=== PATIENT | female | born 1950 | race Caucasian/White ===

== ENCOUNTER 2016-10-15 21:40 | Inpatient (IN) | payer MEDICARE ==
[~2016-10-15] VITALS: Ht 170.2 cm; Wt 65.4 kg
[~2016-10-15 21:40] MED LIST: ATENPOW10 PO
[2016-10-15 21:51] VITALS: BP 150/79; PULSE 87; RESP 18; TEMP 98.7
--- NOTE | 2016-10-15 21:53 | PD ---
HPI Chief Complaint: transfer from [facility] Time Seen by Provider: 21:53 Travel History International Travel<30 days: No Contact w/Intl Traveler<30days: No History of Present Illness HPI 65-year-old female presents to the emergency Department as a transfer from [facility]. The patient states she fell today. According to the records, she fell in her bathroom injuring the left side of her face and her left side. She has a past medical history Alzheimer's disease, hypertension , seizures. CT of the brain showed no acute disease. CT the abdomen and pelvis showed diffuse infiltration around the left kidney with high density material in the left infrarenal collecting system compatible with blood within the collecting system. Patient reports pain to her left side. She denies any other pain at this time. Patient is oriented to person, place, but not time. PFSH Past Medical History Hypertension: Yes Social History Alcohol Use: No Tobacco Use: No Substance Use: No Allergies-Medications (Allergen,Severity, Reaction): Coded Allergies: No Known Allergies (Unverified , 10/15/16) Reported Meds & Prescriptions Reported Meds & Active Scripts Active Reported Atenolol 25 Mg Tab 12.5 Mg PO DAILY Review of Systems Except as stated in HPI: all other systems reviewed are Neg Physical Exam Narrative GENERAL: Well-developed well-nourished female patient, afebrile. SKIN: Warm and dry. Contusion noted to the left eye orbit. HEAD: Normocephalic. EYES: No scleral icterus. No injection or drainage. NECK: Supple, trachea midline. No JVD or lymphadenopathy. CARDIOVASCULAR: Regular rate and rhythm without murmurs, gallops, or rubs. RESPIRATORY: Breath sounds equal bilaterally. No accessory muscle use. GASTROINTESTINAL: Abdomen soft, non-tender, nondistended. MUSCULOSKELETAL: No cyanosis, or edema. Patient has tenderness over her left flank/abdomen. BACK: Nontender without obvious deformity. No CVA tenderness. Data Data Last Documented VS Vital Signs Date Time Temp Pulse Resp B/P Pulse Ox O2 Delivery O2 Flow Rate FiO2 10/15/16 21:55 87 18 10/15/16 21:55 142/83 94 Room Air 10/15/16 21:51 98.7 MDM Medical Decision Making Medical Screen Exam Complete: Yes Emergency Medical Condition: Yes Medical Record Reviewed: Yes Differential Diagnosis renal trauma vs. renal contusion vs. intra-abdominal abnormality vs. fall Narrative Course 65-year-old female is a transfer from [facility] for Dr. Hernández to evaluate. 2156 - Dr. Hernández notified patient was in the ED and will be down to see her. Dr. Hernández saw patient and would like patient admitted to him. Diagnosis Primary Impression: Kidney trauma Qualified Code: S37.002A - Kidney trauma, left, initial encounter Admitting Information Admitting Physician Requests: Admit Jory Morris Oct 15, 2016 21:53
[2016-10-15 21:55] VITALS: BP 142/83; PULSE 88; RESP 18; O2SAT 94
[2016-10-15] MEDS ORDERED: ATEN25TA PO (21:58)
[2016-10-15] MEDS ORDERED: MAGNESIUM HYDROXIDE SUSP 30 ML CUP PO PRN (22:30)
[2016-10-15] MEDS ORDERED: ACETAMINOPHEN/HYDROcodone 325 MG/5 MG TAB PO PRN ×2 (22:30)
[2016-10-15] MEDS ORDERED: ENALAPRILAT 1.25 MG/ML VIAL IV PRN (22:30)
[2016-10-15] MEDS ORDERED: ACETAMINOPHEN 325 MG TAB PO PRN (22:30)
[2016-10-15] MEDS ORDERED: SODIUM CHLORIDE 0.9% FLUSH 5 ML FLUSH IVF PRN (22:30)
[2016-10-15] MEDS ORDERED: ONDANSETRON HCL 4 MG/2 ML VIAL IV PRN (22:30)
[2016-10-15] MEDS: BACITRACIN TOP OINT 15 GM TUBE TOP SCH (22:30)
[2016-10-15] MEDS ORDERED: MORPHINE SULFATE 4 MG/ML INJ IV PRN (22:30)
[2016-10-15 23:07] VITALS: BP 139/72; PULSE 85; RESP 18; TEMP 98.6; O2SAT 100
[2016-10-15] MEDS: SODIUM CHLOR 0.9% 1000 ML INJ 1,000 ML IV SCH (23:22)
[2016-10-15] MEDS: PANTOPRAZOLE SODIUM 40 MG VIAL IVP SCH (23:23)
[2016-10-15] MEDS: CIPROFLOXACIN 400 MG PREMIX 200 ML IV SCH (23:23)
[2016-10-16] VITALS (7 sets, daily range): BP systolic 108–135; BP diastolic 61–72; PULSE 81–105; RESP 18–20; TEMP 98.1–99.6; O2SAT 93–98
[2016-10-16 05:53] LABS: AUTOMATED NEUTROPHIL # 13.9 TH/MM3 (1.8-7.7); BASOPHIL % 0.2 % (0.0-2.0); HEMATOCRIT 38.8 % (35.0-46.0); HEMO FLAGS DIFF FINAL; LYMPH % 3.6 % (9.0-44.0); LYMPHOCYTE # 0.6 TH/MM3 (1.0-4.8); MEAN CELL VOLUME 88.5 FL (80.0-100.0); MEAN CORPUSCULAR HEMOGLOBIN 30.2 PG (27.0-34.0); MEAN CORPUSCULAR HGB CONC 34.1 % (32.0-36.0); MONO % 5.6 % (0.0-8.0); NEUT % 90.6 % (16.0-70.0); PLATELET COUNT 197 TH/MM3 (150-450); RED BLOOD COUNT 4.39 MIL/MM3 (4.00-5.30); RED CELL DISTRIBUTION WIDTH 12.9 % (11.6-17.2); WHITE BLOOD COUNT 15.4 TH/MM3 (4.0-11.0)
[2016-10-16 06:11] LABS: BICARBONATE 23.4 MEQ/L (21.0-32.0)
--- NOTE | 2016-10-16 08:18 | MH ---
cc: LISANDRO MAIER DATE OF ADMISSION: 10/15/2016 REASON FOR CONSULTATION Trauma transfer. HISTORY OF PRESENT ILLNESS The patient is a 65-year-old female with a history of dementia who was transferred to [facility] after a fall, to the trauma service. The patient per outside report fell in her bathtub onto her left side. The patient had significant pain left side and some and had some hematuria at home. The patient was transported to [facility] where she underwent a CT scan which showed contusions to the left kidney as well as hematuria and possible extravasation of contrast on delayed films of the left collecting system. The patient had a CT scan of her head which was negative for intracranial injury and had no other injuries, was found to be hemodynamically stable, neurologically intact, intact airway. Urology was contacted by Transfer Center and agreed to be consulted on the patient, requested trauma to admit. The patient arrived to [facility] and was seen by the emergency room staff and found to be hemodynamically stable, neurologically intact and intact airway and breathing. The patient is a poor historian due to her dementia but states she has some left-sided flank pain, there was no other complaints. Review of the documentation shows the documented CT findings as above with unremarkable laboratory values including normal INR and hemoglobin. The patient does not have a Barraza catheter. REVIEW OF SYSTEMS Negative except for the pertinent positives mentioned above in the history of present illness. PAST MEDICAL HISTORY Hypertension and dementia. SOCIAL HISTORY Denies alcohol, tobacco or drug use and lives with family at home. ALLERGIES NO KNOWN DRUG ALLERGIES. MEDICATIONS Atenolol. FAMILY HISTORY The family history is noncontributory. PAST SURGICAL HISTORY None. PHYSICAL EXAMINATION VITAL SIGNS: Pulse 87, blood pressure 142/83, O2 saturation 94%. GENERAL: The patient is a well-developed, well-nourished elderly female, in no acute distress. HEENT: Head is normocephalic, atraumatic. Does have a small abrasion and contusion over her left eyebrow. Midface is stable. Pupils are equal, round and reactive, accommodation to light. Sclerae is anicteric. Mucous membranes are moist. No malocclusion. Mandible is stable. NECK: No cervical spine tenderness or deformity. No JVD. Trachea is midline. CHEST: Chest wall is stable without deformity. Nontender to palpation. LUNGS: Clear to auscultation bilaterally. HEART: Regular rate and rhythm. No murmurs. ABDOMEN: Soft, nondistended. No organomegaly. No ascites and no seatbelt sign. No peritonitis or rebound tenderness. Left flank reveals tenderness to palpation with no external ecchymosis. BACK: No thoracic or lumbar tenderness or deformity. EXTREMITIES: No clubbing, cyanosis or edema. NEUROLOGIC EXAMINATION: Patient is oriented x2, moves all extremities, equal strength, nonfocal. Cranial nerves II-XII grossly intact. ASSESSMENT/PLAN The patient is a 65-year-old female transferred from [facility] with possible injury to the left collecting system. The patient is hemodynamically stable, neurologically intact, intact airway. The patient has a benign abdominal exam. There was no other signs of injuries. Will admit the patient for further evaluation and consult urology for their recommendations and management. Will place a Barraza catheter and monitor urine output. Place the patient on IV fluids, keep the patient n.p.o. for possible intervention. Will also start empiric antibiotics, cover gram-negative bacteria. Will also consult medicine team for management of the patient's multiple medical comorbidities. The patient will also need evaluation for her fall. MD TRUDY Gary/TLL /10:29 PM /8:00 AM
[2016-10-16] MEDS ORDERED: INFLUENZA VIRUS VACCINE (QUADRIVALENT) 0.5 ML SYR IM ONE (10:00)
[2016-10-16] MEDS ORDERED: PNEUMOCOCCAL POLYVALENT INJ 25 MCG/0.5 ML SYR IM ONE (10:00)
[2016-10-16] MEDS ORDERED: IOHEXOL 350 MG/ML 50 ML BTL (for RAD DIAG) IV ONE (10:35)
[2016-10-16] MEDS: CIPROFLOXACIN 400 MG PREMIX 200 ML IV SCH ×2 (11:23→23:52)
[2016-10-16] MEDS: SODIUM CHLOR 0.9% 1000 ML INJ 1,000 ML IV SCH ×2 (11:23→20:37)
--- NOTE | 2016-10-16 11:34 | RADRPT ---
EXAM DATE/TIME: 10/16/2016 10:28 [place] COMPARISON: No previous studies available for comparison. EXTERNAL COMPARISON : [facility] INDICATIONS : Fall yesterday, contusions to left kidney and hematuria. IV CONTRAST: 95 cc Omnipaque 350 (iohexol) IV ORAL CONTRAST: No oral contrast ingested. RADIATION DOSE: 13.28 CTDIvol (mGy) MEDICAL HISTORY : Myocardial infarction. Hypertension. SURGICAL HISTORY : None. ENCOUNTER: Initial ACUITY: 1 day PAIN SCALE: 5/10 LOCATION: Left flank TECHNIQUE: Volumetric scanning of the abdomen and pelvis was performed. Using automated exposure control and ad justment of the mA and/or kV according to patient size, radiation dose was kept as low as reasonably achievable to obtain optimal diagnostic quality images. FINDINGS: There are dependent atelectatic changes bilaterally. A small hiatal hernia is present. There is high density within the gallbladder characteristic of vicarious excretion of contrast. There is contrast w ithin the intrarenal collecting systems. The spleen, pancreas, bilateral adrenal glands and right kid shereen are unremarkable. There is perinephric stranding with a small amount of perinephric free fluid tr acking inferiorly. Barraza catheter within urinary bladder. Uterus and adnexa are unremarkable. No evid ence of bowel obstruction. Appendix, small bowel and large bowel are normal. Aortic and iliac artery calcifications are noted. Review of bone windows demonstrate no worrisome osseous lesions. Right tota l hip arthroplasty. Best seen on the 10 minute delayed images is abnormal extravasation of contrast i n the perinephric space anterior and medial to the left kidney the anterior, superior and posterior t o the proximal ureter. This is most concerning for a proximal ureteral injury. CONCLUSION: There is abnormal contrast extravasation on the delayed images with perinephric fluid. The density of the contrast is the same as that within the ureter, and a proximal ureteral injury is suspected give n these findings. There is also focal retention of contrast at the lower pole of the left kidney. Stephen Maza MD on October 16, 2016 at 11:25 Board Certified Radiologist. This report was verified electronically.
[2016-10-16] MEDS: BACITRACIN TOP OINT 15 GM TUBE TOP SCH ×2 (11:43→20:37)
--- NOTE | 2016-10-16 12:08 | PD.CONS ---
[facility] By Trauma surgery Reason for Consult Medical management of hypertension and seizures Primary Care Physician Unknown Diagnoses: History of Present Illness This patient is a 65-year-old female with a history of seizures who has over the last 6 months had progressive seizure activity and has been in follow-up with her neurologist in [facility]. She was transferred here due to a fall( after sz) and flank pain which thought to be related to injury to the left kidney. She does have some extravasation seen on dye studies of the kidney and has been recommended for urological intervention due to this. Renal function is normal. Patient has Alzheimer's and does have power of crowd controller at bedside who assisted in her history Review of Systems Constitutional: DENIES: Diaphoretic episodes, Fatigue, Fever, Weight gain, Weight loss, Chills, Dizziness, Change in appetite, Night Sweats Endocrine: DENIES: Abnorml menstrual pattern, Heat/cold intolerance, Polydipsia , Polyuria, Polyphagia Eyes: DENIES: Blurred vision, Diplopia, Eye inflammation, Eye pain, Vision loss , Photosensitivity, Double Vision Ears, nose, mouth, throat: DENIES: Tinnitus, Hearing loss, Vertigo, Nasal discharge, Oral lesions, Throat pain, Hoarseness, Ear Pain, Running Nose, Epistaxis, Sinus Pain, Toothache, Odynophagia Respiratory: DENIES: Apneas, Cough, Snoring, Wheezing, Hemoptysis, Sputum production, Shortness of breath Cardiovascular: DENIES: Chest pain, Palpitations, Syncope, Dyspnea on Exertion , PND, Lower Extremity Edema, Orthopnea, Claudication Gastrointestinal: DENIES: Abdominal pain, Black stools, Bloody stools, Constipation, Diarrhea, Nausea, Vomiting, Difficulty Swallowing, Anorexia Genitourinary: DENIES: Abnormal vaginal bleeding, Dysmenorrhea, Dyspareunia, Sexual dysfunction, Urinary frequency, Urinary incontinence, Urgency, Hematuria , Dysuria, Nocturia, Vaginal discharge Musculoskeletal: DENIES: Joint pain, Muscle aches, Stiffness, Joint Swelling, Back pain, Neck pain Integumentary: DENIES: Abnormal pigmentation, Pruritus, Rash, Nail changes, Breast masses, Breast skin changes, Nipple discharge Hematologic/lymphatic: DENIES: Bruising, Lymphadenopathy Immunologic/allergic: DENIES: Eczema, Urticaria Neurologic: COMPLAINS OF: Seizures, DENIES: Abnormal gait, Headache, Localized weakness, Paresthesias, Speech Problems, Tremor, Poor Balance Psychiatric: COMPLAINS OF: Confusion, DENIES: Anxiety, Mood changes, Depression, Hallucinations, Agitation, Suicidal Ideation, Homicidal Ideation, Delusions Past Family Social History Allergies: Coded Allergies: No Known Allergies (Unverified , 10/15/16) Past Medical History Seizures Alzheimer's gerd hypertension Past Surgical History Denies Reported Medications Reviewed in the medical record, also takes keppra, lamotrigine, donepezil, buspirone, and opmeprazole Active Ordered Medications Reviewed in the record Family History Hypertension Physical Exam Vital Signs Vital Signs Date Time Temp Pulse Resp B/P Pulse Ox O2 Delivery O2 Flow Rate FiO2 10/16/16 08:00 98.8 96 20 108/68 93 10/16/16 04:00 99.6 81 18 130/67 95 10/16/16 00:00 98.9 88 18 134/72 97 10/15/16 23:07 98.6 85 18 139/72 100 Room Air 10/15/16 21:55 87 18 10/15/16 21:55 88 18 142/83 94 Room Air 10/15/16 21:51 98.7 87 18 150/79 Physical Exam GENERAL: This is a well-nourished, well-developed patient, in no apparent distress. SKIN: No rashes, ecchymoses or lesions. Cool and dry. HEAD: Atraumatic. Normocephalic. No temporal or scalp tenderness. EYES: left eye ecchymosis, Pupils equal round and reactive. Extraocular motions intact. No scleral icterus. No injection or drainage. ENT: Nose without bleeding, purulent drainage or septal hematoma. Throat without erythema, tonsillar hypertrophy or exudate. Uvula midline. Airway patent. NECK: Trachea midline. No JVD or lymphadenopathy. Supple, nontender, no meningeal signs. CARDIOVASCULAR: Regular rate and rhythm without murmurs, gallops, or rubs. RESPIRATORY: Clear to auscultation. Breath sounds equal bilaterally. No wheezes , rales, or rhonchi. GASTROINTESTINAL: Abdomen soft, non-tender, nondistended. No hepato-splenomegaly , or palpable masses. No guarding. MUSCULOSKELETAL: Extremities without clubbing, cyanosis, or edema. No joint tenderness, effusion, or edema noted. No calf tenderness. Negative Homans sign bilaterally. NEUROLOGICAL: Awake and alert. Cranial nerves II through XII intact. Motor and sensory grossly within normal limits. Five out of 5 muscle strength in all muscle groups. Normal speech. Laboratory Laboratory Tests Test 10/16/16 05:06 White Blood Count 15.4 Red Blood Count 4.39 Hemoglobin 13.3 Hematocrit 38.8 Mean Corpuscular Volume 88.5 Mean Corpuscular Hemoglobin 30.2 Mean Corpuscular Hemoglobin 34.1 Concent Red Cell Distribution Width 12.9 Platelet Count 197 Mean Platelet Volume 9.4 Neutrophils (%) (Auto) 90.6 Lymphocytes (%) (Auto) 3.6 Monocytes (%) (Auto) 5.6 Eosinophils (%) (Auto) 0.0 Basophils (%) (Auto) 0.2 Neutrophils # (Auto) 13.9 Lymphocytes # (Auto) 0.6 Monocytes # (Auto) 0.9 Eosinophils # (Auto) 0.0 Basophils # (Auto) 0.0 CBC Comment DIFF FINAL Differential Comment Sodium Level 137 Potassium Level 4.0 Chloride Level 104 Carbon Dioxide Level 23.4 Anion Gap 10 Blood Urea Nitrogen 12 Creatinine 0.72 Estimat Glomerular Filtration 81 Rate Random Glucose 132 Calcium Level 8.8 Result Diagram: 10/16/16 0506 10/16/[address] abd pelvis shows extravasation of contrast in left kidney system Assessment and Plan Problem List: (1) Kidney trauma ICD Code: S37.009A Status: Acute Plan: for urological follow up today deshpande empiric Cipro (2) Seizure ICD Code: R56.9 Status: Acute Plan: Escalation of seizure activity in the last 6 months per patient and healthcare surrogate. We'll consult neurology EEG pending Sees dr Negro DEVINE resume AEDs (3) HTN (hypertension) ICD Code: I10 Status: Acute Plan: on atenolol at home BP low will hold bb, cont iVF (4) Dementia ICD Code: F03.90 Status: Acute Plan: alzheimers type POA at bedside resume donepezil Code Status full Discussed Condition With patient, RN, POA Problem Qualifiers (1) Kidney trauma: Qualified Code: S37.002A - Kidney trauma, left, initial encounter Lauren Gutierrez MD Oct 16, 2016 12:08
[2016-10-16] MEDS: busPIRone HCL 10 MG TAB PO SCH ×2 (12:30→20:36)
[2016-10-16] MEDS ORDERED: levETIRAcetam 500 MG TAB PO SCH (12:30)
[2016-10-16] MEDS: lamoTRIgine 25 MG TAB PO SCH (13:00)
--- NOTE | 2016-10-16 13:10 | HHI.PR ---
Subjective Subjective Notes PTD: 1 Patient sitting up in bed in no distress. She states her stomach "aches." Objective Vitals/I&O Vital Signs Date Time Temp Pulse Resp B/P Pulse Ox O2 Delivery O2 Flow Rate FiO2 10/16/16 12:00 99.3 95 20 122/69 96 10/15/16 23:07 Room Air Labs Laboratory Tests Test 10/16/16 05:06 White Blood Count 15.4 Red Blood Count 4.39 Hemoglobin 13.3 Hematocrit 38.8 Mean Corpuscular Volume 88.5 Mean Corpuscular Hemoglobin 30.2 Mean Corpuscular Hemoglobin 34.1 Concent Red Cell Distribution Width 12.9 Platelet Count 197 Mean Platelet Volume 9.4 Neutrophils (%) (Auto) 90.6 Lymphocytes (%) (Auto) 3.6 Monocytes (%) (Auto) 5.6 Eosinophils (%) (Auto) 0.0 Basophils (%) (Auto) 0.2 Neutrophils # (Auto) 13.9 Lymphocytes # (Auto) 0.6 Monocytes # (Auto) 0.9 Eosinophils # (Auto) 0.0 Basophils # (Auto) 0.0 CBC Comment DIFF FINAL Differential Comment Sodium Level 137 Potassium Level 4.0 Chloride Level 104 Carbon Dioxide Level 23.4 Anion Gap 10 Blood Urea Nitrogen 12 Creatinine 0.72 Estimat Glomerular Filtration 81 Rate Random Glucose 132 Calcium Level 8.8 Radiology Images from [facility]: 10/16/2015 CTA abdomen and pelvis: abnormal contrast extravasation with perinephric fluid. Proximal ureteral injury is suspected. (retention of contrast at the lower pole of the LEFT kidney.) Narrative Exam GENERAL: This is a 65-year-old female sitting up in bed in no distress. SKIN: Warm and dry. HEAD: Atraumatic. Normocephalic. EYES: PERRLA. LEFT eye with slight ecchymosis noted. ENT: No nasal bleeding or discharge. Mucous membranes pink and moist. NECK: Trachea midline. No JVD. CARDIOVASCULAR: Regular rate and rhythm. RESPIRATORY: No accessory muscle use. Lungs are clear to auscultation. Breath sounds equal bilaterally. No distress or dyspnea. GASTROINTESTINAL: BS + x 4 quads. Abdomen soft, tender to palpation in the LEFT lumbar region of abdomen. Nondistended. MUSCULOSKELETAL: Extremities without cyanosis, or edema. + peripheral pulses x 4 extremities. Warm with good capillary refill and sensation. MAEW. NEUROLOGICAL: Awake and alert. Normal speech and pattern. A/P Assessment and Plan [place]: This is a 65-year-old female who was a trauma transfer from [facility] in [place]. She fell in the bathroom onto her LEFT side. INJURIES: CT head negative LEFT kidney INJURY - proximal ureteral injury Diet: NPO at present. Pulmonary: Encourage good pulmonary toileting. IS at bedside and pt encouraged to use. Rationale for use explained to patient, and verbalized understanding. PAIN Management: [place], and Tylenol. Activity: BR, PT ordered. GI prophylaxis: Protonix IV. Barraza catheter in place to bedside drainage bag with clear yellow urine. (No blood noted) Bowel regimen: Colace and MOM. DVT prophylaxis: Mechanical VTE with SCDs. Chemical management contraindicated at this time. Will continue to monitor. DC Planning: Case management consulted for assistance with final discharge disposition. Emotional support provided to patient at bedside and plan of care discussed. Plan of care discussed with RN at bedside. Patient is hemodynamically stable and being managed on the med/surg floor. Attending Statement Patient seen and examined with the physician underground truck operator. After performing my own clinical exam and assessment, I agree with the assessment and plan. Sarah Beth Vasquze Oct 16, 2016 13:10 Maicol May MD Oct 20, 2016 14:58
[2016-10-16] MEDS ORDERED: PHENYLEPH/NS 1000 MCG/10 ML SYR IV ONE (14:22)
[2016-10-16] MEDS ORDERED: ONDANSETRON HCL 4 MG/2 ML VIAL IV PUSH ONE (14:22)
[2016-10-16] MEDS ORDERED: PROPOFOL 200 MG/20 ML AMP IV ONE (14:22)
[2016-10-16] MEDS ORDERED: NORMOSOL R INJ 1,000 ML IV ONE (14:22)
[2016-10-16] MEDS ORDERED: MIDAZOLAM HCL 2 MG/2 ML VIAL ONE (15:20)
--- NOTE | 2016-10-16 15:46 | PD.CONS ---
HPI Service Urology Consult Requested By Reason for Consult Ureteral injury Primary Care Physician Unknown Diagnosis: (1) Kidney trauma ICD Code: S37.009A (2) Seizure ICD Code: R56.9 (3) HTN (hypertension) ICD Code: I10 (4) Dementia ICD Code: F03.90 History of Present Illness 65 yo female with history of seizures seen in consultation s/p ground level fall on her left side with evidence of left proximal ureteral injury noted on CT scan with some contrast extravasation noted at the level of the left UPJ. Contrast was seen extending the entire length of the ureter do the distal ureter and bladder, suggesting a minor tear/injury to the proximal left ureter. Patient at this time is doing well, no fevers, no flank pain. She has a bruise underneath her left eye. Decision making performed by her power of employment attorney. No hematuria, however evidence of blood products in the left collecting system. Review of Systems ROS Limitations: Clinical Condition Constitutional: DENIES: Fatigue, Fever Endocrine: DENIES: Polyuria Eyes: DENIES: Blurred vision Ears, nose, mouth, throat: DENIES: Hearing loss Respiratory: DENIES: Apneas Cardiovascular: DENIES: Chest pain Gastrointestinal: DENIES: Abdominal pain, Nausea, Vomiting Genitourinary: DENIES: Urgency, Hematuria, Dysuria Musculoskeletal: DENIES: Joint pain Integumentary: DENIES: Abnormal pigmentation Hematologic/lymphatic: COMPLAINS OF: Bruising Immunologic/allergic: DENIES: Eczema Neurologic: DENIES: Headache Psychiatric: DENIES: Anxiety Past Family Social History Past Medical History Seizures Alzheimer's gerd hypertension Past Surgical History Denies any surgical history Reported Medications Reported Meds & Active Scripts Active Reported Atenolol 25 Mg Tab 12.5 Mg PO DAILY Allergies: Coded Allergies: No Known Allergies (Unverified , 10/15/16) Active Ordered Medications Current Medications Medications (Trade) Dose Ordered Sig/Tete Route Start Time Stop Time Status Last Admin (NS 1000 ml Inj) 1,000 ml @ 100 mls/hr Q10H IV 10/15/16 22:21 10/16/16 11:23 (NS Flush) 2 ml UNSCH PRN IVF 10/15/16 22:30 (Morphine Inj) 2 mg Q1H PRN IV 10/15/16 22:30 ([place] 5-325 Mg) 1 tab Q4H PRN PO 10/15/16 22:30 ([place] 5-325 Mg) 2 tab Q4H PRN PO 10/15/16 22:30 (Tylenol) 650 mg Q6H PRN PO 10/15/16 22:30 (Vasotec Inj) 1.25 mg Q8H PRN IV 10/15/16 22:30 (Zofran Inj) 4 mg Q6H PRN IV 10/15/16 22:30 (Protonix Inj) 40 mg Q24H IVP 10/15/16 23:00 10/15/16 23:23 (Baciguent Oint) 1 applic BID TOP 10/15/16 22:30 10/16/16 11:43 Magnesium Hydroxide 30 ml 30 ml Q6H PRN PO 10/15/16 22:30 (Cipro 400 Mg Premix) 200 ml @ 200 mls/hr Q12H IV 10/15/16 23:00 10/16/16 11:23 (Keppra) 500 mg Q12HR PO 10/16/16 12:30 (LaMICtal) 25 mg DAILY PO 10/16/16 13:00 (Buspar) 10 mg Q12HR PO 10/16/16 12:30 (Aricept) 5 mg DAILY PO 10/17/16 09:00 Family History Hypertension Social History Denies tobacco and ETOH Physical Exam Vital Signs Vital Signs Date Time Temp Pulse Resp B/P Pulse Ox O2 Delivery O2 Flow Rate FiO2 10/16/16 12:00 99.3 95 20 122/69 96 10/16/16 08:00 98.8 96 20 108/68 93 10/16/16 04:00 99.6 81 18 130/67 95 10/16/16 00:00 98.9 88 18 134/72 97 10/15/16 23:07 98.6 85 18 139/72 100 Room Air 10/15/16 21:55 87 18 10/15/16 21:55 88 18 142/83 94 Room Air 10/15/16 21:51 98.7 87 18 150/79 Physical Exam GENERAL: This is a well-nourished, well-developed patient, in no apparent distress. SKIN: No rashes, ecchymoses or lesions. Bruise under left eye HEAD: Atraumatic. Normocephalic.. EYES: Extraocular motions intact. No scleral icterus. No injection or drainage. ENT: Nose without bleeding, purulent drainage. Airway patent. NECK: Trachea midline. No JVD or lymphadenopathy. CARDIOVASCULAR: Extremities well perfused, normal pulses RESPIRATORY: Nonlabored, equal chest rise GASTROINTESTINAL: Abdomen soft, non-tender, nondistended. MUSCULOSKELETAL: Extremities without clubbing, cyanosis, or edema. NEUROLOGICAL: Awake and alert.. Motor and sensory grossly within normal limits. Normal speech. Laboratory Laboratory Tests Test 10/16/16 05:06 White Blood Count 15.4 Red Blood Count 4.39 Hemoglobin 13.3 Hematocrit 38.8 Mean Corpuscular Volume 88.5 Mean Corpuscular Hemoglobin 30.2 Mean Corpuscular Hemoglobin 34.1 Concent Red Cell Distribution Width 12.9 Platelet Count 197 Mean Platelet Volume 9.4 Neutrophils (%) (Auto) 90.6 Lymphocytes (%) (Auto) 3.6 Monocytes (%) (Auto) 5.6 Eosinophils (%) (Auto) 0.0 Basophils (%) (Auto) 0.2 Neutrophils # (Auto) 13.9 Lymphocytes # (Auto) 0.6 Monocytes # (Auto) 0.9 Eosinophils # (Auto) 0.0 Basophils # (Auto) 0.0 CBC Comment DIFF FINAL Differential Comment Sodium Level 137 Potassium Level 4.0 Chloride Level 104 Carbon Dioxide Level 23.4 Anion Gap 10 Blood Urea Nitrogen 12 Creatinine 0.72 Estimat Glomerular Filtration 81 Rate Random Glucose 132 Calcium Level 8.8 Result Diagram: 10/16/16 0506 10/16/[address] Urogram 10/16/16: Evidence of contrast extravasation at the level of the left UPJ Assessment and Plan Problem List: (1) Kidney trauma ICD Code: S37.009A Status: Acute (2) Seizure ICD Code: R56.9 Status: Acute (3) Dementia ICD Code: F03.90 Status: Acute (4) HTN (hypertension) ICD Code: I10 Status: Acute Assessment and Plan 65yo female with left proximal ureteral injury -As there is contrast noted outside the left collecting system, a left ureteral stent is indicated to allow proper healing, prevent future stricture formation, and resolve the extravasation of urine. -Left ureteral stent will need to be removed in the future after investigation of the left collecting system again by either CT urogram or retrograde pyelogram -At this time, will take patient to OR for cystoscopy , left ureteral stent placement -Consent obtained and signed by power of employment attorney Problem Qualifiers (1) Kidney trauma: Qualified Code: S37.002A - Kidney trauma, left, initial encounter Aniket Esposito MD Oct 16, 2016 15:46
[2016-10-16] MEDS ORDERED: IOHEXOL 300 MG/ML 50 ML BTL (for RAD DIAG) OTHER ONE (16:00)
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
[2016-10-16] MEDS ORDERED: DO NOT ADM ANY ANTICOAGULANT DRUGS XX PRN (17:00)
--- NOTE | 2016-10-16 18:05 | RADRPT ---
EXAM DATE/TIME: 10/16/2016 15:14 [facility] COMPARISON: CT ABDOMEN & PELVIS W CONTRAST, October 16, 2016, 10:28. INDICATIONS : Stent placement. OR. 1.1 minutes IMAGE COUNT: 2 CONTRAST: Instilled by Ordering Physician MEDICAL HISTORY : Myocardial infarction. Hypertension. SURGICAL HISTORY : None. ENCOUNTER: Initial ACUITY: 1 day PAIN SCORE: Non-responsive. LOCATION: Left lower quadrant abdomen FINDINGS: Contrast leaks in the left renal hilum region. A left ureteral stent is placed, proximal pigtail not completely coiled and with tip appearing to be in a left upper pole calyx. CONCLUSION: Left collecting system rupture again noted, probably of the renal pelvis or UPJ regio n. Left ureteral stent placed and the proximal tip projects over the left upper pole. Pedro Rdz MD on October 16, 2016 at 18:01 Board Certified Radiologist. This report was verified electronically.
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
--- NOTE | 2016-10-16 19:28 | MG ---
cc: MICHAEL GOODE Lab No: Date: Age: Sex: F Race: ELECTROENCEPHALOGRAM NUMBER [id number] INTRODUCTION A 65-year-old. Hyperventilation not performed. History of seizures, a fall. Keppra. Lamictal. BuSpar. DESCRIPTION A symmetrical 10 Hz 60 microvolts posterior rhythm is seen. The recording overall is synchronous and symmetrical. Some bifrontal artifact is noted and bitemporal artifact with muscle artifact. Photic stimulation was performed without significant posterior driving. No epileptiform or seizure activity is seen. Hyperventilation is not performed. IMPRESSION A normal awake EEG. No evidence for a focal or diffuse abnormality. MD HILARIO Rondon/KAYLA /6:46 PM /7:24 PM
[2016-10-16] MEDS: OXYBUTYNIN CHLORIDE 5 MG TAB PO SCH (20:36)
[2016-10-16] MEDS: levETIRAcetam 500 MG TAB PO SCH (20:36)
--- NOTE | 2016-10-16 21:14 | MP ---
cc: RUFINO SILVER MD DATE OF SURGERY 10/16/2016 PREOPERATIVE DIAGNOSIS Left proximal ureteral injury. POSTOPERATIVE DIAGNOSIS Left proximal ureteral injury. SURGEON Rufino Silver MD PROCEDURE PERFORMED 1. Cystoscopy. 2. Left retrograde pyelogram. 3. Interpretation of radiographic images. 4. Left ureteral stent placement 6 x 22. PERTINENT FINDINGS Successful placement of left 6 x 22 double J ureteral stent. INTERPRETATION OF RADIOGRAPHIC FINDINGS 1. Left retrograde pyelogram revealed minimal contrast extravasation noted at the proximal left ureter at the level of the UPJ. 2. Successful placement of a left ureteral stent with curl in the left upper pole renal stormy. No other abnormalities noted. HISTORY OF THE PRESENT ILLNESS Graciela Villagran is a 65-year-old female with a history of seizures with a recent ground level fall to the left side resulting in a proximal ureter injury noted on a CT urogram. With contrast extravasation noted at the left proximal ureter / UPJ. She was taken to the operating room for a left retrograde pyelogram and left ureteral stent placement given the radiographic findings. PROCEDURE IN DETAILS After proper informed consent was obtained the patient brought to the operating room and charla supine on the operating table. Bilateral lower extremity sequential compression devices were then placed. The patient was placed under general anesthesia. The patient was then placed in the lithotomy position, prepped and draped in the standard surgical fashion. After a proper timeout was completed, a rigid cystoscope was inserted through the urethra into the bladder. The urethral mucosal was within normal limits without any abnormalities or lesions identified in the bladder. Upon entering the bladder the bilateral ureteral orifices were identified. The left ureteral orifice was then cannulated using the guidewire and guided up to the left renal pelvis. An open ended 5 Salvadorean poly catheter was placed over the wire into the proximal ureter. At this point the wire was removed and the retrograde pyelogram was administered which does not reveal any significant evidence of a contrast extravasation with some mild contrast noted around the proximal ureter and kidney. Again the calyces were noted to be sharp without any blunting and easily identified. At this point the guidewire was then replaced and was passed in to the left upper pole calyx. At this point the open ended poly catheter was removed and a 6 x 22 double J ureteral stent was then successfully placed at the left renal upper pole calyx and confirmed position via fluoroscopy. At this point the was cope removed as the patient's bladder was emptied. A 16 Salvadorean urethral catheter was replaced in the bladder. The patient tolerated the procedure well and no complications. She was awoken from anesthesia and taken to the postanesthesia care unit in good stable condition. DISPOSITION The patient is to monitor the ureteral stent in place with follow up in the urology clinic in a few weeks. She will likely need a another study regarding her collecting system in a few weeks to months with either a repeat CT urogram or a cystoscopy and left retrograde pyelogram. The ____ catheter may be removed prior to discharge. Rufino Silver M.D. ZACH/KAYLA /4:12 PM /8:33 PM
[2016-10-16] MEDS: PANTOPRAZOLE SODIUM 40 MG VIAL IVP SCH (23:52)
[2016-10-17] VITALS (7 sets, daily range): BP systolic 105–133; BP diastolic 58–75; PULSE 74–103; RESP 18–20; TEMP 97.4–99.1; O2SAT 95–99
[2016-10-17] MEDS: SODIUM CHLOR 0.9% 1000 ML INJ 1,000 ML IV SCH ×2 (03:41→14:48)
[2016-10-17] MEDS: OXYBUTYNIN CHLORIDE 5 MG TAB PO SCH ×2 (06:08→14:45)
[2016-10-17 06:50] LABS: HEMATOCRIT 34.4 % (35.0-46.0); MEAN CELL VOLUME 89.2 FL (80.0-100.0); MEAN CORPUSCULAR HGB CONC 33.7 % (32.0-36.0); PLATELET COUNT 162 TH/MM3 (150-450); RED BLOOD COUNT 3.86 MIL/MM3 (4.00-5.30); RED CELL DISTRIBUTION WIDTH 13.1 % (11.6-17.2); REVIEW FLAG FINAL; WHITE BLOOD COUNT 8.1 TH/MM3 (4.0-11.0)
--- NOTE | 2016-10-17 07:57 | HHI.PR ---
Objective Vital Signs Date Time Temp Pulse Resp B/P Pulse Ox O2 Delivery O2 Flow Rate FiO2 10/17/16 04:00 99.1 103 18 105/58 95 10/17/16 00:00 98.8 98 18 108/63 96 10/16/16 20:45 98.1 105 18 135/61 95 10/16/16 20:00 105 10/16/16 17:00 98.4 95 20 116/64 98 10/16/16 16:55 98.2 92 16 142/71 96 Room Air 10/16/16 16:45 96 16 149/86 95 Room Air 10/16/16 16:30 97 16 152/89 99 Nasal Cannula 2 10/16/16 16:18 98.3 96 16 151/85 98 Nasal Cannula 2 10/16/16 12:00 99.3 95 20 122/69 96 10/16/16 08:00 98.8 96 20 108/68 93 I/O 10/16/16 10/16/16 10/16/16 10/17/16 10/17/16 10/17/16 07:00 15:00 23:00 07:00 15:00 23:00 Intake Total 514 ml 0 ml 2317 ml 936 ml Output Total 1150 ml 1400 ml 1215 ml 1350 ml Balance -636 ml -1400 ml 1102 ml -414 ml Intake Oral 0 ml 0 ml 120 ml IV Total 514 ml 1317 ml 816 ml Other 1000 ml Output Urine Total 1150 ml 1400 ml 1200 ml 1350 ml Estimated Blood Loss 15 ml # Bowel Movements 0 0 0 Result Diagram: 10/17/16 0516 10/16/16 0506 Objective Remarks awake alert knows [facility] [place] feisty Assessment and Plan Assessment and Plan imp no sz overnoc eeg done and normal do mri and it is ok, then ok to dc if cannot do mri due to stent do ct and if ok ok to dc on 1000 bid keppra and i will fu o/p pts home helper needs to be contacted about new dose as pt memory is spotty Alex Schmitt MD Oct 17, 2016 07:56
[2016-10-17] MEDS ORDERED: DONEPEZIL HCL 5 MG TAB PO SCH (09:00)
[2016-10-17] MEDS: BACITRACIN TOP OINT 15 GM TUBE TOP SCH (09:14)
[2016-10-17] MEDS: busPIRone HCL 10 MG TAB PO SCH (09:14)
[2016-10-17] MEDS: lamoTRIgine 25 MG TAB PO SCH (09:14)
[2016-10-17] MEDS: levETIRAcetam 500 MG TAB PO SCH (09:14)
[2016-10-17 10:59] LABS: RAPID PLASMA REAGIN SCREEN NON-REACTIVE (NON-REACTVE)
[2016-10-17] MEDS ORDERED: GADODIAMIDE PF 287 MG/ML 5 ML VIAL (for RAD MRI) IV ONE (11:33)
[2016-10-17] MEDS: CIPROFLOXACIN 400 MG PREMIX 200 ML IV SCH (12:24)
--- NOTE | 2016-10-17 16:08 | RADRPT ---
EXAM DATE/TIME: 10/17/2016 11:14 [facility] COMPARISON: No previous studies available for comparison. INDICATIONS : Seizures. CONTRAST: 12 cc Omniscan (gadodiamide) IV MEDICAL HISTORY : Hypertension. Seizures. Alzheimer's. GERD SURGICAL HISTORY : Rt hip, ureteral stents ENCOUNTER: Subsequent ACUITY: 2 day PAIN SCORE: 0/10 LOCATION: cranial TECHNIQUE: Multiplanar, multisequence MRI of the brain was performed both prior to and following the administrat ion of paramagnetic contrast. FINDINGS: CEREBRUM: The ventricles are normal for age. No evidence of midline shift, mass lesion, hemorrhage or acute in farction. No extraaxial fluid collections are seen. The pituitary gland and suprasellar cistern are normal in configuration. Incidental finding of a cavum septum vergae. WHITE MATTER: No significant signal abnormalities are seen in the white matter. POSTERIOR FOSSA: The cerebellum and brainstem are intact. The 4th ventricle is midline. The cerebellopontine angle is unremarkable. The cerebellar tonsils are normal in position. DIFFUSION IMAGING: No focal areas of restricted diffusion are seen. No evidence of acute infarction. EXTRACRANIAL: The visualized portions of the orbits and paranasal sinuses are unremarkable. POST-CONTRAST: No abnormal areas of parenchymal or dural enhancement. No evidence of blood-brain barrier breakdown. CONCLUSION: Normal examination for a patient of this age. Jules Valadez MD on October 17, 2016 at 16:05 Board Certified Radiologist. This report was verified electronically.
[2016-10-17] MEDS ORDERED: LEVE500 PO (16:55)
[2016-10-17] MEDS ORDERED: BUSP10TA PO (16:55)
[2016-10-17] MEDS ORDERED: LAMO25 PO (16:55)
[2016-10-17] MEDS ORDERED: ARIC5TAB PO (16:55)
[2016-10-17] MEDS ORDERED: ACET325T PO (16:55)
--- NOTE | 2016-10-17 17:05 | HHI.DS ---
Discharge Summary Admission Date Oct 15, 2016 at 22:45 Discharge Date: Oct 17, 2016 Admitting Diagnosis renal trauma (1) Kidney trauma Diagnosis: Principal (2) Seizure Diagnosis: Secondary (3) HTN (hypertension) Diagnosis: Secondary (4) Dementia Diagnosis: Secondary Brief History Fall. CBC/BMP: 10/17/16 0516 10/16/16 0506 Significant Findings Laboratory Tests Test 10/16/16 10/16/16 10/17/16 05:06 19:13 05:16 White Blood Count 15.4 TH/MM3 (4.0-11.0) Neutrophils (%) (Auto) 90.6 % (16.0-70.0) Lymphocytes (%) (Auto) 3.6 % (9.0-44.0) Neutrophils # (Auto) 13.9 TH/MM3 (1.8-7.7) Lymphocytes # (Auto) 0.6 TH/MM3 (1.0-4.8) Estimat Glomerular Filtration 81 ML/MIN (>89) Rate Random Glucose 132 MG/DL (74-106) Erythrocyte Sedimentation Rate 34 mm/hr (0-30) Red Blood Count 3.86 MIL/MM3 (4.00-5.30) Hematocrit 34.4 % (35.0-46.0) Imaging Last Impressions Brain MRI 10/17/16 1733 Signed Impressions: Service Date/Time: Monday, October 17, 2016 11:14 - CONCLUSION: Normal examination for a patient of this age. Jules Valadez MD Retrograde Pyelogram 10/16/16 0000 Signed Impressions: Service Date/Time: Sunday, October 16, 2016 15:14 - CONCLUSION: Left collecting system rupture again noted, probably of the renal pelvis or UPJ region. Left ureteral stent placed and the proximal tip projects over the left upper pole. Pedro Rdz MD Abdomen/Pelvis CT 10/16/16 0000 Signed Impressions: Service Date/Time: Sunday, October 16, 2016 10:28 - CONCLUSION: There is abnormal contrast extravasation on the delayed images with perinephric fluid. The density of the contrast is the same as that within the ureter, and a proximal ureteral injury is suspected given these findings. There is also focal retention of contrast at the lower pole of the left kidney. Stephen Maza MD PE at Discharge GENERAL: This is a 65-year-old female sitting up in bed in no distress. SKIN: Warm and dry. HEAD: Atraumatic. Normocephalic. EYES: PERRLA. LEFT eye with slight ecchymosis noted. ENT: No nasal bleeding or discharge. Mucous membranes pink and moist. NECK: Trachea midline. No JVD. CARDIOVASCULAR: Regular rate and rhythm. RESPIRATORY: No accessory muscle use. Lungs are clear to auscultation. Breath sounds equal bilaterally. No distress or dyspnea. GASTROINTESTINAL: BS + x 4 quads. Abdomen soft, tender to palpation in the LEFT lower (lateral) quadrant Nondistended. MUSCULOSKELETAL: Extremities without cyanosis, or edema. + peripheral pulses x 4 extremities. Warm with good capillary refill and sensation. MAEW. NEUROLOGICAL: Awake and alert. Normal speech and pattern. Hospital Course This is a 65-year-old female who apparently fell in her bathroom and landed on her left side. She was originally treated at [facility], but was transferred to [facility] to be followed on the trauma service. Injuries: Left kidney injury/proximal urethral injury 10/16/2016: Cystoscopy, urethral stent insertion on the LEFT The patient is now tolerating a po diet. Eating and drinking well. Patient has not been complaining pain while here in the hospital, therefore she can easily treat any generalized discomfort with [id number] Tylenol. Pt is having regular bowel movements, and have recommended to the patient to continue with stool softeners if she becomes constipated. Pt has been participating in PT while admitted at [facility] and has been ambulating with their assistance and independently . No needs required at home. All follow up appointments have been provided and discussed with the patient. It is recommended that the patient keeps all his follow up appointments for continued recovery. Therefore, the patient is stable to be safely discharged home from a trauma surgery standpoint. Patient states that she lives with friends, and they will be coming to pick her up, and take care of her at home. Thank you for allowing us to participate in her care. We wish Graciela the best in her recovery. Pt Condition on Discharge: Stable Discharge Disposition: Discharge Home Discharge Instructions DIET: Follow Instructions for: As Tolerated, No Restrictions Activities you can perform: Regular-No Restrictions, Shower/Bath Activities to Avoid: Driving for 24 hrs, Concussion Sports, Contact Sports, Strenuous Activity Sarah Beth Vasquez Oct 17, 2016 17:05
[2016-10-17] MEDS ORDERED: PANTOPRAZOLE SOD 40 MG DELAYED RELEASE TAB PO SCH (21:00)
--- NOTE | 2016-10-18 00:01 | EKG ---
Date Performed: 10/16/2016 Time Performed: 13:31:15 PTAGE: 65 years EKG: Sinus rhythm NORMAL ECG PREVIOUS TRACING : 02/09/2012 01.57 DOCTOR: Merry Orantes Interpretating Date/Time 10/17/2016 23:51:26
[2016-10-18 15:06] LABS: ANA SCREEN NEG (NEG)
[2016-10-19 19:56] LABS: VITAMIN B6 4.6 ng/mL (2.1-21.7)
== END 2016-10-17 18:48 | disposition home or self-care (01) | DRG 965 ==
LOC: NEPC 21:40 → NEDA 22:45 → N07B 23:40
PROVIDERS: ADMIT Surgery; ATTEND Surgery
PROC: BT1F1ZZ Fluoroscopy of Left Kidney, Ureter and Bladder using Low Osmolar Contrast (ICD-10-PCS; 2016-10-16)
PROC: 0T778DZ Dilation of Left Ureter with Intraluminal Device, Via Natural or Artificial Opening Endoscopic (ICD-10-PCS; principal; 2016-10-16 15:37)
DX: S37.13XA Laceration of ureter, initial encounter (principal); S37.012A Minor contusion of left kidney, initial encounter; S00.83XA Contusion of other part of head, initial encounter; R56.9 Unspecified convulsions; G30.9 Alzheimer's disease, unspecified; F02.80 Dementia in other diseases classified elsewhere, unspecified severity, without behavioral disturbance, psychotic disturbance, mood disturbance, and anxiety; I10 Essential (primary) hypertension; K21.9 Gastro-esophageal reflux disease without esophagitis; W18.30XA Fall on same level, unspecified, initial encounter; Y92.002 Bathroom of unspecified non-institutional (private) residence as the place of occurrence of the external cause; Z28.82 Immunization not carried out because of caregiver refusal
CPT/HCPCS: 70553; 74177; 74420; 80048; 82607; 83921; 84207; 84425; 85025; 85027; 85652; 86038; 86592; 93005; 94150; 95819; 99285; A9579; C1769; C9113; J0744; J2250; J2370; J2405; J3010; J7030; Q9967